=== PATIENT | male | born 1965 | race Caucasian/White ===

== ENCOUNTER → 2016-08-07 | Outpatient (CLI) | payer OTHER ==
[~2016-08-07] MED LIST: CENTRUM; CIALIS5 MG; DEPAKOTE250 MG PO; EFFEXOR PO; FLEXERIL PO; IBUPROFEN PO; KLONOPIN PO; KLONOPIN1 MG; LORTAB 101 TAB 10/5; LUNESTA PO; NARCO; NEURONTIN300 MG; NEXIUM PO; PREVACID PO; PRILOSEC PO; SOMA COMPOUND T1 TAB PO; STOMACH PILL; TOPAMAX; TRAZODONE PO; VICODIN 5/500 T1 TAB PO; [UNRECOGNIZED DRUG - OTHER]
--- NOTE | ~2016-08-07 | CR63 ---
[facility] A Service of [facility] & [facility] RADIOLOGY TEXT RESULTS PATIENT: MYA PERRY LOCATION: [facility] : 65 UNIT #: [id number] AGE: [address]: Elke Mcfarlane TARPER SEX: M ORDER DR: [id number] [place] [address] [id number] O MR#: [id number] Acc #: [id number] NAME: MYA PERRY : 1965 SEX: M STUDY DATE/TIME: 08/07/2016 13:51 UNIT: [facility] ROOM: STUDY DESCRIPTION: CR Chest 2 View Attending Physician: Elke Mcfarlane A.P.R.N. Referring Physician: Elke Mcfarlane A.P.R.N. Ordering Physician: Elke Mcfarlane A.P.R.N. Primary Care Physician: Elke Mcfarlane A.P.R.N. MEDICAL IMAGING REPORT This report is preliminary unless electronic signature is present. EXAM Chest, PA and lateral, 08/07/16. HISTORY Smoking history with 40-pound weight loss in the last 6-months. FINDINGS PA and lateral examination of the chest upright shows a good expansion of the parenchyma with a normal distribution of the pulmonary vascularity. There is no indication of congestion, effusion, infiltrate, tumor, or nodular density. The pleural reflections and diaphragmatic contours are normal. The cardiac silhouette and mediastinal anatomy is within normal limits. IMPRESSION Normal chest. Dictated by... Siva Mandujano M.D. THIS IS AN ELECTRONICALLY VERIFIED REPORT Siva Mandujano M.D. at 08/08/2016 8:02 AM JENNA/lj TD: 08/07/2016 17:02 JOB #: [id number] MEDICAL IMAGING REPORT Page 1 of 1
== END | disposition home or self-care (01) ==
LOC: SRAD 13:48
DX: F17.200 Nicotine dependence, unspecified, uncomplicated (principal); R63.4 Abnormal weight loss
CPT/HCPCS: 71020